=== PATIENT | male | born 1940 | race Asian ===

== ENCOUNTER → 2017-01-02 17:33 | Outpatient (CLI) | payer OTHER ==
[~2017-01-02 17:33] MED LIST: CIPRO500 MG PO; LISI10TA11 PO; MICROZIDE12.5 MG OR; NIFE30TA PO; TRIM800T12 PO
== END | disposition home or self-care (01) ==
LOC: AMB 17:33
DX: Z04.3 Encounter for examination and observation following other accident (principal)

== ENCOUNTER 2018-01-14 10:03 | Outpatient (CLI) | payer OTHER ==
[2018-01-14 10:24] LABS: PLATELET COUNT 161 K/uL (142-355)
[2018-01-14 10:44] LABS: POTASSIUM 3.6 mmol/L (3.6-5.2)
== END 2018-01-14 19:28 | disposition home or self-care (01) ==
LOC: LABW 10:03
PROVIDERS: Internal Medicine
DX: I10 Essential (primary) hypertension (principal); I42.0 Dilated cardiomyopathy; Z79.899 Other long term (current) drug therapy; Z51.81 Encounter for therapeutic drug level monitoring; M10.00 Idiopathic gout, unspecified site
CPT/HCPCS: 36415; 80053; 80061; 81000; 83880; 84439; 84443; 84550; 85027

== ENCOUNTER 2023-03-26 11:02 | Outpatient (CLI) | payer OTHER | END 2023-03-26 20:00 | disposition home or self-care (01) | LOC: CT 11:02 | PROVIDERS: ATTEND Internal Medicine Pulmonary Disease | DX: R06.02 Shortness of breath (principal) | CPT/HCPCS: Q9963 ==